=== PATIENT | female | born 1965 | race Hispanic/Latino ===

== ENCOUNTER 2017-10-27 06:15 | Day surgery (SDC) | payer BC ==
[~2017-10-27] VITALS: Ht 149.9 cm; Wt 90.2 kg
[~2017-10-27 06:15] MED LIST: ATEN1TAB3 PO; CETI10TA57 PO; IBUP-2077 PO
[2017-10-27] MEDS ORDERED: SODIUM CHLORIDE 0.9% 1000ML 1,000 ML IV ONE (06:31)
[2017-10-27 06:42] VITALS: BP 126/83
[2017-10-27] MEDS ORDERED: FLUT16H NASAL (07:21)
[2017-10-27] MEDS ORDERED: PROPOFOL 10 MG/ML 20ML VIAL IV ONE (07:56)
== END 2017-10-27 08:50 | disposition home or self-care (01) ==
LOC: DAH 06:15
PROVIDERS: ATTEND Internal Medicine Gastroenterology
DX: D12.2 Benign neoplasm of ascending colon (principal); K57.30 Diverticulosis of large intestine without perforation or abscess without bleeding; I10 Essential (primary) hypertension; M10.9 Gout, unspecified; Z90.710 Acquired absence of both cervix and uterus; Z90.49 Acquired absence of other specified parts of digestive tract; Z88.1 Allergy status to other antibiotic agents; Z88.5 Allergy status to narcotic agent; Z88.8 Allergy status to other drugs, medicaments and biological substances; Z83.71 Family history of colonic polyps
CPT/HCPCS: 45385; 88305; A4606; J2704; J7030